=== PATIENT | female | born 1985 | race Caucasian/White ===

== ENCOUNTER 2017-06-18 13:41 | Emergency (ER) | payer OTHER ==
[2017-06-18 13:54] VITALS: BP 123/87; PULSE 85; RESP 19; TEMP 98.3; O2SAT 98
--- NOTE | 2017-06-18 14:16 | ED PDOC ---
Arrival/HPI - General Chief Complaint: Lower Extremity Problem/Injury Time Seen by Provider: 06/18/17 14:10 Historian: Patient - History of Present Illness Narrative History of Present Illness (Text): 06/18/17 14:10 Family member was the medical i d sales. This 31 yo female who denies pmh, presents to this ED c/o right ankle pain since yesterday. Patient stated while walking in her bedroom, she twisted her right ankle. She did not fall, or hit her head. Patient denies back pain, neck pain, hip pain, calf pain, leg swelling, head injury, loc, sob, cp, abdominal pain, or dizziness. Patient is ambulatory with mild pain. Time/Duration: Other (see hpi) Context: Home Past Medical History - Provider Review Nursing Documentation Reviewed: Yes - Infectious Disease Hx of Infectious Diseases: None - Reproductive Menopause: No - Psychiatric Hx Substance Use: No - Anesthesia Hx Anesthesia: No Hx Anesthesia Reactions: No Hx Malignant Hyperthermia: No Family/Social History - Physician Review Nursing Documentation Reviewed: Yes Family/Social History: Other Smoking Status: Never Smoked Hx Alcohol Use: No Hx Substance Use: No Allergies/Home Meds Allergies/Adverse Reactions: Allergies No Known Allergies Allergy (Verified 06/18/17 13:54) Review of Systems - Review of Systems Constitutional: Normal. absent: Fatigue, Weight Change, Fevers Eyes: Normal ENT: Normal Respiratory: Normal. absent: SOB, Cough Cardiovascular: Normal. absent: Chest Pain Gastrointestinal: Normal. absent: Abdominal Pain, Nausea, Vomiting Genitourinary Female: Normal. absent: Dysuria, Frequency, Hematuria Musculoskeletal: Other (right ankle pain) Skin: Normal Neurological: Normal Endocrine: Normal Hemo/Lymphatic: Normal Psychiatric: Normal Physical Exam Vital Signs Temp Pulse Resp BP Pulse Ox 06/18/17 13:48 98.3 F 85 19 123/87 98 Temperature: Afebrile Blood Pressure: Normal Pulse: Regular Respiratory Rate: Normal Appearance: Positive for: Well-Appearing, Non-Toxic, Comfortable Pain Distress: None Mental Status: Positive for: Alert and Oriented X 3 - Systems Exam Head: Present: Atraumatic, Normocephalic Medical Decision Making ED Course and Treatment: 06/18/17 15:23 Re-evaluation. Patient feels better. Discussed results and plan with patient who expresses understanding. All questions answered and there is agreement with the plan to discharge home with instructions. Patient stable for discharge. Return if symptoms persist or worsen. Re-evaluation Time: 15:24 Reassessment Condition: Re-examined, Improved - RAD Interpretation Narrative RAD Interpretations (Text): 06/18/17 15:15 Ankle x-rays: Distal fibula chip Fx. Radiology Orders: 06/18/17 14:31 ANKLE RIGHT 3 VIEWS ROUTINE [RAD] Stat - Procedure PROCEDURE NOTE (Text): 06/18/17 15:22 PROCEDURE: SPLINT APPLICATION Applied by Emergency Provider. Location: right ankle Procedure: The area of the splint was appropriately positioned. A 5 inch ortho glass posterior, long leg splint was applied. Post-procedure: Good position. Neurovascular status remains intact. Patient tolerated the procedure well with no immediate complications Disposition/Present on Arrival - Present on Arrival Any Indicators Present on Arrival: No History of DVT/PE: No History of Uncontrolled Diabetes: No Urinary Catheter: No History of Decub. Ulcer: No History Surgical Site Infection Following: CABG - Mediastinitis, None - Disposition Have Diagnosis and Disposition been Completed?: Yes Diagnosis: Fracture of distal end of right fibula Disposition: HOME/ ROUTINE Disposition Time: 15:25 Patient Plan: Discharge Patient Problems: Current Active Problems Problem Status Onset Fracture of distal end of right fibula Acute Condition: GOOD Discharge Instructions (ExitCare): Ankle Fracture, Avulsion Fracture (DC) Additional Instructions: Call [facility] for follow up visit in 1-2 days. Keep ankle elevated, ice, rest , splint, crutches. Return to emergency if pain worsen. Prescriptions: Ibuprofen [Motrin] 600 mg PO Q8 PRN #20 tab PRN Reason: Pain, Severe (8-10) Referrals: [facility] [Outside] - Follow up with primary [facility] [Outside] - Follow up with primary John Bender DPM [Staff Provider] - Follow up with primary Forms: [employer] (Portuguese)
--- NOTE | 2017-06-18 15:10 | RAD ---
PROCEDURE: Right Ankle Radiographs. HISTORY: pain COMPARISON: None FINDINGS: BONES: Acute fracture distal right fibula. JOINTS: Normal. No osteoarthritis. Ankle mortise maintained. Talar dome intact SOFT TISSUES: Soft tissue swelling attests to the acuity of the fracture. OTHER FINDINGS: None. IMPRESSION: Acute fracture distal fibula. Concordant results with the preliminary interpretation rendered by the emergency department physician procedure.
== END 2017-06-18 15:47 | disposition home or self-care (01) ==
LOC: ED 13:41
DX: S82.831A Other fracture of upper and lower end of right fibula, initial encounter for closed fracture (principal); X50.1XXA Overexertion from prolonged static or awkward postures, initial encounter; Y93.01 Activity, walking, marching and hiking; Y92.002 Bathroom of unspecified non-institutional (private) residence as the place of occurrence of the external cause